=== PATIENT | male | born 1940 | race Two or more races ===

== ENCOUNTER 2023-07-26 15:57 | Inpatient (IN) | payer OTHER ==
[~2023-07-26] VITALS: Ht 185.4 cm; Wt 67.3 kg
[2023-07-26 17:07] LABS: Base Excess 0.7 mmol/L (-2.0-2.0)
[2023-07-26 17:08] LABS: Basophils # (auto) 0.1 10 ^3/uL (0-0.2); Eosinophils # (auto) 0.1 10 ^3/uL (0-0.8); Eosinophils % (auto) 1.4 % (0.0-7.0); Hematocrit 38.8 % (41.0-53.0); Hemoglobin 12.9 g/dL (13.5-17.5); Lymphocytes # (auto) 0.8 10 ^3/uL (0.4-5.4); Lymphocytes % (auto) 14.1 % (10.0-50.0); Mean Corpuscular Hemoglobin 31.1 pg (28.0-32.0); Mean Corpuscular Hgb Conc. 33.4 g/dL (32.0-36.0); Mean Corpuscular Volume 93.2 fL (80.0-100.0); Monocytes # (auto) 0.5 10 ^3/uL (0-1.3); Monocytes % (auto) 8.7 % (0.0-12.0); Neutrophils # (auto) 4.4 10 ^3/uL (1.6-8.6); Neutrophils % (auto) 74.8 % (37.0-80.0); Nucleated Red Blood Cells % 0.1 %; Red Blood Cells 4.16 10^6/uL (4.5-5.90); Red Cell Distribution Width 14.6 % (11.8-14.3); White Blood Cell 5.9 10^3/uL (4.4-10.8)
[2023-07-26 17:23] LABS: Alanine Aminotransferase 25 U/L (7-40); Albumin 4.3 g/dL (3.2-4.8); Alkaline Phosphatase 134 U/L (46-116); Anion Gap 4 (5-15); Aspartate Aminotransferase 27 U/L (13-40); BUN/Creatinine Ratio 10.5 (10.0-20.0); Bilirubin, Total 0.9 mg/dL (0.2-1.0); Blood Urea Nitrogen 10 mg/dL (9-23); Calcium 8.6 mg/dL (8.7-10.4); Carbon Dioxide 29 mmol/L (20-30); Chloride 101 mmol/L (98-107); Glucose 175 mg/dL (74-106); INR 1.05 (0.9-1.15); Lipase 32 U/L (12-53); Potassium 4.7 mmol/L (3.5-5.1); Sodium 134 mmol/L (136-145); Total Protein 6.9 g/dL (5.7-8.2)
[2023-07-26] MEDS ORDERED: FUROSEMIDE 40 MG/4 ML VIAL IV ONE (18:15)
[2023-07-26] MEDS ORDERED: ASPirin 325 MG TAB PO ONE (18:15)
[2023-07-26] MEDS ORDERED: AZITHROMYCIN 500MG/ 250ML 250 ML IV ONE (18:15)
[2023-07-26] MEDS ORDERED: cefTRIAXone 1GM/50ML D5W 50 ML IV ONE (18:15)
[2023-07-26] MEDS ORDERED: ALBUTEROL SULF 2.5 MG/0.5ML(0.5%) NEB SOLN NEB PRN (21:00)
[2023-07-26] MEDS ORDERED: MORPHINE SULFATE INJ 2 MG/ml SYRG IV PRN (21:00)
[2023-07-26] MEDS ORDERED: NITROGLYCERIN 0.4 MG SL TAB SL PRN (21:00)
[2023-07-26] MEDS ORDERED: ONDANSETRON HCL 4 MG/2 ML VIAL IV PRN (21:00)
[2023-07-26 21:23] VITALS: BP 157/109; PULSE 86; RESP 16; TEMP 97.4; O2SAT 96
[2023-07-26 23:30] VITALS: PULSE 94; RESP 14; O2SAT 99
[2023-07-27] VITALS (14 sets, daily range): BP systolic 105–160; BP diastolic 69–85; PULSE 69–89; RESP 16–21; TEMP 97.7–98; O2SAT 95–99
[2023-07-27 00:25] LABS: Rapid Influenza A Negative (Negative); Rapid Influenza B Negative (Negative)
[2023-07-27 00:28] LABS: COVID19 ANTIGEN SOFIA FIA NEGATIVE (NEGATIVE)
[2023-07-27] MEDS: ATORVASTATIN 20 MG TAB PO SCH ×2 (00:38→21:33)
[2023-07-27] MEDS: ACETAMINOPHEN 325 MG TAB PO PRN ×2 (00:38→11:48)
[2023-07-27] MEDS: APIXABAN 2.5 MG TAB PO SCH ×3 (00:39→21:33)
[2023-07-27 01:36] LABS: Urine WBC None Seen /hpf (0 - 3)
[2023-07-27 02:23] LABS: Urine Bacteria NONE SEEN /hpf (None Seen); Urine Blood Negative /uL (Negative); Urine Clarity Clear (Clear); Urine Color Colorless (Yellow); Urine Protein, UAD 1+ (Negative); Urine Specific Gravity 1.012 (1.001-1.035); Urine Urobilinogen Normal (Negative); Urine pH 6.5 (5.0-8.0)
[2023-07-27 04:32] LABS: Basophils # (auto) 0.1 10 ^3/uL (0-0.2); Eosinophils # (auto) 0.1 10 ^3/uL (0-0.8); Eosinophils % (auto) 1.4 % (0.0-7.0); Hemoglobin 13.2 g/dL (13.5-17.5); Lymphocytes # (auto) 0.8 10 ^3/uL (0.4-5.4); Lymphocytes % (auto) 13.7 % (10.0-50.0); Mean Corpuscular Hemoglobin 31.3 pg (28.0-32.0); Mean Corpuscular Hgb Conc. 33.9 g/dL (32.0-36.0); Mean Corpuscular Volume 92.5 fL (80.0-100.0); Monocytes # (auto) 0.6 10 ^3/uL (0-1.3); Monocytes % (auto) 9.1 % (0.0-12.0); Neutrophils # (auto) 4.6 10 ^3/uL (1.6-8.6); Neutrophils % (auto) 74.8 % (37.0-80.0); Nucleated Red Blood Cells % 0.1 %; Red Blood Cells 4.21 10^6/uL (4.5-5.90); Red Cell Distribution Width 14.5 % (11.8-14.3); White Blood Cell 6.1 10^3/uL (4.4-10.8)
[2023-07-27 04:49] LABS: Alanine Aminotransferase 24 U/L (7-40); Albumin 4.3 g/dL (3.2-4.8); Alkaline Phosphatase 136 U/L (46-116); Anion Gap 4 (5-15); Aspartate Aminotransferase 26 U/L (13-40); BUN/Creatinine Ratio 12.5 (10.0-20.0); Blood Urea Nitrogen 10 mg/dL (9-23); Calcium 8.9 mg/dL (8.7-10.4); Carbon Dioxide 30 mmol/L (20-30); Chloride 101 mmol/L (98-107); Glucose 138 mg/dL (74-106); Potassium 4.6 mmol/L (3.5-5.1); Sodium 135 mmol/L (136-145)
[2023-07-27 04:50] LABS: Bilirubin, Total 1.1 mg/dL (0.2-1.0); Total Protein 6.9 g/dL (5.7-8.2)
[2023-07-27] MEDS ORDERED: APIX2.5T PO (06:45)
[2023-07-27] MEDS ORDERED: ATOR10TA PO (06:45)
[2023-07-27] MEDS ORDERED: METO25TA5 PO (06:45)
[2023-07-27] MEDS ORDERED: TRIAMTERENE/HCTZ 75/50MG TABLET PO SCH (10:00)
[2023-07-27] MEDS: FUROSEMIDE 40 MG TAB PO SCH (10:35)
[2023-07-27] MEDS: ASPirin 81 mg TAB PO SCH (10:36)
[2023-07-27] MEDS: METOPROLOL SUCCINATE XL 50 MG TAB PO SCH (10:36)
[2023-07-27] MEDS: AZITHROMYCIN 500MG/ 250ML 250 ML IV SCH (11:47)
[2023-07-27] MEDS ORDERED: methylPREDNISolone SOD SUCC 40 MG/ML VL IV ONE (14:30)
[2023-07-27] MEDS: ALBUTEROL SULF 2.5 MG/0.5ML(0.5%) NEB SOLN NEB SCH (18:50)
[2023-07-27] MEDS: IPRATROPIUM BROM 0.5 MG/2.5ML INH SOL NEB SCH (18:50)
[2023-07-28] VITALS (10 sets, daily range): BP systolic 146–184; BP diastolic 65–87; PULSE 68–82; RESP 16–22; TEMP 97.3–98.8; O2SAT 79–98
[2023-07-28 06:03] LABS: Basophils # (auto) 0 10 ^3/uL (0-0.2); Basophils % (auto) 0.2 % (0.0-2.0); Eosinophils # (auto) 0 10 ^3/uL (0-0.8); Hematocrit 37.6 % (41.0-53.0); Hemoglobin 12.9 g/dL (13.5-17.5); Lymphocytes # (auto) 0.6 10 ^3/uL (0.4-5.4); Lymphocytes % (auto) 11.5 % (10.0-50.0); Mean Corpuscular Hemoglobin 31.5 pg (28.0-32.0); Mean Corpuscular Hgb Conc. 34.4 g/dL (32.0-36.0); Mean Corpuscular Volume 91.5 fL (80.0-100.0); Monocytes # (auto) 0.2 10 ^3/uL (0-1.3); Monocytes % (auto) 3.7 % (0.0-12.0); Neutrophils # (auto) 4.1 10 ^3/uL (1.6-8.6); Neutrophils % (auto) 84.6 % (37.0-80.0); Nucleated Red Blood Cells % 0.1 %; Red Blood Cells 4.11 10^6/uL (4.5-5.90); Red Cell Distribution Width 14.5 % (11.8-14.3); White Blood Cell 4.9 10^3/uL (4.4-10.8)
[2023-07-28 06:05] LABS: Chloride 98 mmol/L (98-107); Potassium 4.4 mmol/L (3.5-5.1); Sodium 135 mmol/L (136-145)
[2023-07-28 06:06] LABS: Anion Gap 8 (5-15); Carbon Dioxide 29 mmol/L (20-30)
[2023-07-28 06:07] LABS: Calcium 9.5 mg/dL (8.5-10.1)
[2023-07-28 06:11] LABS: BUN/Creatinine Ratio 19.1 (10.0-20.0); Blood Urea Nitrogen 21 mg/dL (9-23); Glucose 208 mg/dL (74-106)
[2023-07-28] MEDS: cefTRIAXone 1GM/50ML D5W 50 ML IV SCH (08:57)
[2023-07-28] MEDS: ASPirin 81 mg TAB PO SCH (08:57)
[2023-07-28] MEDS: FUROSEMIDE 40 MG TAB PO SCH (08:58)
[2023-07-28] MEDS: APIXABAN 2.5 MG TAB PO SCH ×2 (08:58→21:40)
[2023-07-28] MEDS: METOPROLOL SUCCINATE XL 50 MG TAB PO SCH (08:58)
[2023-07-28] MEDS: AZITHROMYCIN 500MG/ 250ML 250 ML IV SCH (08:59)
[2023-07-28] MEDS: methylPREDNISolone SOD SUCC 40 MG/ML VL IV SCH (08:59)
[2023-07-28] MEDS: POTASSIUM CHL 10 Meq TABLET PO SCH (09:50)
[2023-07-28] MEDS: ACETAMINOPHEN 325 MG TAB PO PRN (17:12)
[2023-07-28] MEDS: IPRATROPIUM BROM 0.5 MG/2.5ML INH SOL NEB SCH (18:40)
[2023-07-28] MEDS: ALBUTEROL SULF 2.5 MG/0.5ML(0.5%) NEB SOLN NEB SCH (18:40)
[2023-07-28] MEDS ORDERED: hydrALAZINE HCL 20 MG/ML VL IV PRN (20:00)
[2023-07-28] MEDS: ATORVASTATIN 20 MG TAB PO SCH (21:40)
[2023-07-29] VITALS (8 sets, daily range): BP systolic 125–156; BP diastolic 68–87; PULSE 68–87; RESP 16–20; TEMP 97.6–98.3; O2SAT 86–97
[2023-07-29] MEDS: ALBUTEROL SULF 2.5 MG/0.5ML(0.5%) NEB SOLN NEB SCH (06:56)
[2023-07-29] MEDS: IPRATROPIUM BROM 0.5 MG/2.5ML INH SOL NEB SCH (06:56)
[2023-07-29] MEDS: cefTRIAXone 1GM/50ML D5W 50 ML IV SCH (09:21)
[2023-07-29] MEDS: ASPirin 81 mg TAB PO SCH (09:25)
[2023-07-29] MEDS: methylPREDNISolone SOD SUCC 40 MG/ML VL IV SCH (09:25)
[2023-07-29] MEDS: APIXABAN 2.5 MG TAB PO SCH (09:25)
[2023-07-29] MEDS: METOPROLOL SUCCINATE XL 50 MG TAB PO SCH (09:26)
[2023-07-29] MEDS: FUROSEMIDE 40 MG TAB PO SCH (09:26)
[2023-07-29] MEDS: POTASSIUM CHL 10 Meq TABLET PO SCH (10:00)
[2023-07-29] MEDS: AZITHROMYCIN 500MG/ 250ML 250 ML IV SCH (10:02)
[2023-07-29] MEDS ORDERED: AZIT-81 PO (12:22)
[2023-07-29] MEDS ORDERED: ALBUAER3 IN (12:22)
== END 2023-07-29 14:02 | disposition home or self-care (01) | DRG 193 ==
LOC: ER 15:57 → TELE 21:00 → TELE-WESTW 07-27 03:52
PROVIDERS: ADMIT Nurse Practitioner; ATTEND Internal Medicine
DX: J15.9 Unspecified bacterial pneumonia (principal); I50.43 Acute on chronic combined systolic (congestive) and diastolic (congestive) heart failure; J96.21 Acute and chronic respiratory failure with hypoxia; J44.1 Chronic obstructive pulmonary disease with (acute) exacerbation; J44.0 Chronic obstructive pulmonary disease with (acute) lower respiratory infection; J98.11 Atelectasis; I11.0 Hypertensive heart disease with heart failure; J98.4 Other disorders of lung; I25.10 Atherosclerotic heart disease of native coronary artery without angina pectoris; Z20.822 Contact with and (suspected) exposure to COVID-19; J20.9 Acute bronchitis, unspecified; M19.90 Unspecified osteoarthritis, unspecified site; Z82.49 Family history of ischemic heart disease and other diseases of the circulatory system; Z87.891 Personal history of nicotine dependence
CPT/HCPCS: 36415; 36600; 71045; 80048; 80053; 81001; 82805; 83690; 83735; 83880; 84484; 85025; 85379; 85610; 87426; 87804; 93005; 93306; 93925; 94640; 97163; G0378; J0696